=== PATIENT | male | born 1995 | race Caucasian/White ===

== ENCOUNTER 2018-01-20 07:03 | Emergency (ER) | payer BC ==
[~2018-01-20] VITALS: Ht 185.4 cm; Wt 86.5 kg
[~2018-01-20 07:03] MED LIST: ALBINS/ INH; CETI10TA84 PO; ESCI10TA17 PO; MOME16.7 PO; MOME6000 NAE; MONT1TAB3 PO; PRLSR20 PO; VNTHFA/IN INH
[2018-01-20 07:05] VITALS: TEMP 36.5; Ht 185.4 cm; Wt 86.5 kg
[2018-01-20] MEDS ORDERED: ALBUT/IPRATROP 3MG/0.5MG NEB 3 ML VIAL INH STA (07:14)
--- NOTE | 2018-01-20 07:21 | EMERGENCY ROOM VISIT NOTE ---
History First contact with patient: 07:10 Chief Complaint: RESPIRATORY PROBLEMS Stated Complaint: ASTHMA Nursing Triage Summary: Pt states hx of asthma and dx with mono x 1 mo ago. Pt reports wheezing and sweating. Pt feels this is an asthma exacerbation. Used neb without relief. Sx started 1 hr [employer]. History of Present Illness The patient is a 22 year old male who presents to the Emergency Room via private vehicle accompanied by female with complaints of "respiratory problems" . The patient states that he was diagnosed mononucleosis one month ago. He has been doing well and notes that yesterday he was feeling diaphoretic/sweaty and actually forgot to take his allergy medication. He states that when he woke this morning she had abrupt onset of wheezing and difficulty breathing. He notes this feels like previous asthma exacerbations. He tried using his rescue inhaler without relief. He denies any chest pain. There has been no hemoptysis, recent leg swelling or fracture. Review of Systems A complete 10-point Review of Systems was discussed with the patient, with pertinent positives and negatives listed in the History of Present Illness. All remaining Review of Systems questions can be considered negative unless otherwise specified. Past Medical/Surgical History Medical Problems: (1) Asthma Social History Smoking Status: Never Smoker Alcohol Use: none Drug Use: none Marital Status: single Housing Status: lives with family Occupation Status: student Current/Historical Medications Scheduled Cetirizine (Zyrtec), 10 MG PO DAILY Escitalopram (Lexapro), 10 MG PO DAILY Mometasone Furoate (Inhalation (Asmanex Hfa), 1 PUFF PO QAM Mometasone Furoate (Nasal) (Mometasone Furoate), 1 SPRAY ZOYA DAILY Montelukast Sodium (Singulair), 10 MG PO DAILY Omeprazole (Prilosec), 20 MG PO DAILY Prednisone (Prednisone Tab), 2 TAB PO DAILY Scheduled PRN Albuterol Hfa (Ventolin Hfa), 2 PUFFS INH Q6H PRN for SOB/Wheezing Albuterol Sulf (Proventil 0.083% 2.5MG/3ML), 2.5 MG INH QID PRN for SOB/Wheezing Physical Exam Vital Signs Date Time Temp Pulse Resp B/P (MAP) Pulse Ox O2 Delivery O2 Flow Rate FiO2 01/20/18 08:28 68 18 127/75 95 01/20/18 07:38 66 2/26/18 07:30 91 Room Air 01/20/18 07:30 66 18 135/77 95 Nebulizer 01/20/18 07:08 90 Room Air 01/20/18 07:05 36.5 88 22 117/79 90 Room Air Physical Exam VITAL SIGNS - Vital signs and nursing notes were reviewed. Stable. GENERAL - 22-year-old male appearing his stated age who is in no acute distress. Non toxic on exam. He is sitting upright in bed, resting. Communicates well with provider and answers questions appropriately. SKIN - Without rashes. HEAD - NC/AT. EYES - Sclera anicteric. Palpebral conjunctiva pink and moist with no injection noted. EARS - No deformities of external structures noted on gross examination bilaterally. NOSE - Midline and without cyanosis. No epistaxis or purulent drainage noted. MOUTH/OROPHARYNX - Without perioral cyanosis. NECK - Neck with FROM. Supple to palpation. LUNGS - Chest wall symmetric without accessory muscle use, intercostals retractions, or central cyanosis. Bilateral inspiratory and expiratory wheezing noted. No definite decreased/ consolidation noted. CARDIAC - RRR with S1/S2. No murmur, rubs, or gallops appreciated. ABDOMEN - Abdominal contour normal without pulsations or visible masses. BS normoactive all four quadrants. No tenderness, palpable masses, hepatosplenomegaly, or ascites noted. EXTREMITIES - No clubbing or peripheral cyanosis. NEUROLOGIC - Cranial nerves II through XII grossly intact. PSYCH - A&O, and cooperates fully with examiner. Pt is very pleasant and interacts well with examiner. Medical Decision & Procedures Laboratory Results 01/20/18 07:25 Red Blood Count 4.84, Mean Corpuscular Volume 89.5, Mean Corpuscular Hemoglobin 32.2, Mean Corpuscular Hemoglobin Concent 36.0, Mean Platelet Volume 10.0, Neutrophils (%) (Auto) 31.3, Lymphocytes (%) (Auto) 39.6, Monocytes (%) (Auto) 13.9, Eosinophils (%) (Auto) 14.4, Basophils (%) (Auto) 0.4, Neutrophils # (Auto ) 2.52, Lymphocytes # (Auto) 3.19, Monocytes # (Auto) 1.12, Eosinophils # (Auto ) 1.16, Basophils # (Auto) 0.03 01/20/18 07:25 Test 01/20/18 07:25 White Blood Count 8.05 K/uL (4.8-10.8) Red Blood Count 4.84 M/uL (4.7-6.1) Hemoglobin 15.6 g/dL (14.0-18.0) Hematocrit 43.3 % (42-52) Mean Corpuscular Volume 89.5 fL (80-100) Mean Corpuscular Hemoglobin 32.2 pg (25-34) Mean Corpuscular Hemoglobin Concent 36.0 g/dl (32-36) Platelet Count 252 K/uL (130-400) Mean Platelet Volume 10.0 fL (7.4-10.4) Neutrophils (%) (Auto) 31.3 % Lymphocytes (%) (Auto) 39.6 % Monocytes (%) (Auto) 13.9 % Eosinophils (%) (Auto) 14.4 % Basophils (%) (Auto) 0.4 % Neutrophils # (Auto) 2.52 K/uL (1.4-6.5) Lymphocytes # (Auto) 3.19 K/uL (1.2-3.4) Monocytes # (Auto) 1.12 K/uL (0.11-0.59) Eosinophils # (Auto) 1.16 K/uL (0-0.5) Basophils # (Auto) 0.03 K/uL (0-0.2) RDW Standard Deviation 41.1 fL (36.4-46.3) RDW Coefficient of Variation 12.7 % (11.5-14.5) Immature Granulocyte % (Auto) 0.4 % Immature Granulocyte # (Auto) 0.03 K/uL (0.00-0.02) Prothrombin Time 11.0 SECONDS (9.0-12.0) Prothromb Time International Ratio 1.0 (0.9-1.1) Activated Partial Thromboplast Time 26.4 SECONDS (21.0-31.0) Partial Thromboplastin Ratio 1.0 Anion Gap 6.0 mmol/L (3-11) Est Creatinine Clear Calc Drug Dose 124.7 ml/min Estimated GFR () 116.2 Estimated GFR (Non- 100.3 BUN/Creatinine Ratio 13.6 (10-20) Calcium Level 8.7 mg/dl (8.5-10.1) Total Bilirubin 0.4 mg/dl (0.2-1) Aspartate Amino Transf (AST/SGOT) 18 U/L (15-37) Alanine Aminotransferase (ALT/SGPT) 30 U/L (12-78) Alkaline Phosphatase 65 U/L (45-117) Total Protein 6.6 gm/dl (6.4-8.2) Albumin 3.9 gm/dl (3.4-5.0) Globulin 2.7 gm/dl (2.5-4.0) Albumin/Globulin Ratio 1.5 (0.9-2) Free Thyroxine 0.77 ng/dl (0.80-1.60) Medications Administered Medications (Trade) Dose Ordered Sig/Dora Route Start Time Stop Time Status Last Admin Dose Admin Albuterol/ Ipratropium (Duoneb) 3 ml NOW STAT INH 01/20/18 07:14 01/20/18 07:17 DC 01/20/18 07:26 3 ML Dexamethasone Sodium Phosphate (Dexamethasone Inj Pf) 10 mg STK-MED ONCE .ROUTE 01/20/18 08:18 01/20/18 08:19 DC 01/20/18 08:20 10 MG Albuterol (Ventolin Hfa Inhaler) 60 puffs STK-MED ONCE INH 01/20/18 08:18 01/20/18 08:19 DC 01/20/18 08:20 60 PUFFS Miscellaneous Information (Nursing Verbal Med Order) 1 ea ONE ONCE N/A 01/20/18 08:30 01/20/18 08:35 DC 01/20/18 08:28 1 EA Medical Decision Patient was seen and evaluated as above. He presents to us with wheezing, and symptoms consistent with that of his previous asthma exacerbations per patient. After obtaining a thorough history and physical examination the above work up was performed. No concerning leukocytosis, anemia or metabolic abnormality. For having recent mono, his LFTs are normal. He does note also some abdominal pain that he last had 2 days ago but none currently. He questioned when he could go back to athletic activities. I informed him that I recommend he refrain from such until 1 week after his abdominal pain subsides. He is to call his family doctor to schedule follow-up. While here he was given a DuoNeb , and feeling much better. Chest x-ray was then canceled. He notes he feels okay to go home. He was given Decadron as well as a rescue inhaler for discharge. He'll be given prednisone prescription. He is to follow with his family doctor. The patient was educated upon management, had questions answered prior to discharge, and was discharged home in good condition. In the evaluation and treatment of this patient the following differential diagnoses were entertained: Asthma exacerbation, RI, PE, pericarditis, pneumonia , costochondritis, among others. Impression Primary Impression: Asthma exacerbation Departure Information Dispostion Home / Self-Care Condition GOOD Prescriptions Prednisone (Prednisone Tab) 20 Mg Tab 2 TAB PO DAILY for 5 Days, #10 TAB Prov: Oscar Norwood PA-C 01/20/18 Referrals No Doctor, Assigned (PCP) Patient Instructions My [facility] Additional Instructions You were seen in the emergency department for your asthma exacerbation. You have received a DuoNeb treatment here and IV steroids. You have been prescribed Prednisone 40 mg to be taken orally once a day for the next 5 days. This is an anti-inflammatory medicine to be used to help minimize your symptoms. You should take the COMPLETE course of the medication. Please call your family doctor to schedule follow-up. Please continue normal medications. Please rest and stay well hydrated. In regard to the mono diagnosis, I recommend refraining from contact sports/ activities until 1 week free of abdominal pain. Please return with any new/concerning symptoms or if the need arises.
[2018-01-20 07:30] VITALS: O2SAT 91
[2018-01-20 07:36] LABS: BASO % 0.4 %; BASO ABS # 0.03 K/uL (0-0.2); EOS % 14.4 %; EOS ABS # 1.16 K/uL (0-0.5); HEMATOCRIT 43.3 % (42-52); HEMOGLOBIN 15.6 g/dL (14.0-18.0); IG# 0.03 K/uL (0.00-0.02); LYMPH % 39.6 %; LYMPH ABS # 3.19 K/uL (1.2-3.4); MEAN CELL VOLUME 89.5 fL (80-100); MEAN CORPUSCULAR HEMOGLOBIN 32.2 pg (25-34); MONO % 13.9 %; MONO ABS # 1.12 K/uL (0.11-0.59); NEUT % 31.3 %; NEUT ABS # 2.52 K/uL (1.4-6.5); PLATELET COUNT 252 K/uL (130-400); RED CELL DISTRIBUTION WIDTH CV 12.7 % (11.5-14.5); RED CELL DISTRIBUTION WIDTH SD 41.1 fL (36.4-46.3); WHITE BLOOD COUNT 8.05 K/uL (4.8-10.8)
[2018-01-20 07:49] LABS: PTT PATIENT 26.4 SECONDS (21.0-31.0)
[2018-01-20 07:53] LABS: ALBUMIN 3.9 gm/dl (3.4-5.0); CALCIUM 8.7 mg/dl (8.5-10.1); CREATININE 1.05 mg/dl (0.60-1.40); POTASSIUM 3.6 mmol/L (3.5-5.1)
[2018-01-20 07:56] LABS: TOTAL PROTEIN 6.6 gm/dl (6.4-8.2)
[2018-01-20] MEDS ORDERED: DEXAMETHASONE INJ 10 MG in SYRINGE 0 ML IV STA (08:00)
[2018-01-20] MEDS ORDERED: PRED20TA2 PO (08:03)
[2018-01-20] MEDS ORDERED: ALBUTEROL HFA 8 GM INHALER INH ONE (08:18)
[2018-01-20] MEDS ORDERED: DEXAMETHASONE **PF** INJ 10 MG/ML VIAL ONE (08:18)
[2018-01-20 08:28] VITALS: BP 127/75; PULSE 68; O2SAT 95
[2018-01-20] MEDS ORDERED: NURSING VERBAL MED ORDER ONE (08:30)
== END 2018-01-20 08:29 | disposition home or self-care (01) ==
LOC: C.EDB 07:04
DX: J45.901 Unspecified asthma with (acute) exacerbation (principal)